=== PATIENT | female | born 1955 ===

== ENCOUNTER 2021-11-21 09:30 | Inpatient (IN) | payer OTHER ==
[~2021-11-21] VITALS: Ht 162.6 cm; Wt 90.7 kg
[~2021-11-21 09:30] MED LIST: METFORMIN HCL500 MG; SIMVASTATIN5 MG PO
[2021-11-21] MEDS ORDERED: SYNTHROID50 MCG PO (11:35)
[2021-11-21] MEDS ORDERED: AVAPRO75 MG PO (11:36)
[2021-11-21] MEDS ORDERED: GABAPENTIN800 MG (11:37)
[2021-11-21] MEDS ORDERED: CYMBALTA60 MG PO (11:37)
[2021-11-21] MEDS ORDERED: CELEBREX200MG PO (11:37)
[2021-11-21] MEDS ORDERED: SINGULAIR10 MG PO (11:38)
[2021-11-27] MEDS ORDERED: METFORMIN HCL500 M4 (11:11)
[2021-11-27] MEDS ORDERED: FAMOTIDINE20 MG (11:11)
[2021-11-27] MEDS ORDERED: ILEVRO3 ML (11:11)
[2021-11-27] MEDS ORDERED: DUREZOL5 ML (11:11)
[2021-11-27] MEDS ORDERED: PENTOXIFYLLINE400 MG (11:12)
[2021-11-27] MEDS ORDERED: TIZANIDINE HCL4 MG (11:12)
[2021-11-27] MEDS ORDERED: KETOTIFEN FUMARA5 ML (11:12)
[2021-11-27] MEDS ORDERED: AKTOB5 ML (11:12)
[2021-11-27] MEDS ORDERED: LEVOCETIRIZINE D5 MG (11:13)
[2021-11-30] MEDS ORDERED: DUI500 PO (07:46)
[2021-11-30] MEDS ORDERED: ELIQUIS2.5 MG PO (07:46)
[2021-11-30] MEDS ORDERED: PERCOCET 5-3251 EACH PO (07:46)
== END 2021-11-30 16:50 | DRG 470 ==
LOC: SURG 11-27 05:55 → O/R 11-27 05:55 → SURH 11-27 09:30 → SURG 11-27 13:22
PROVIDERS: ADMIT Orthopaedic Surgery; ATTEND Orthopaedic Surgery
PROC: 0SRD0J9 Replacement of Left Knee Joint with Synthetic Substitute, Cemented, Open Approach (ICD-10-PCS; principal; 2021-11-27 10:15)
DX: M17.12 Unilateral primary osteoarthritis, left knee (principal); D62 Acute posthemorrhagic anemia; M22.12 Recurrent subluxation of patella, left knee; E66.01 Morbid (severe) obesity due to excess calories; I10 Essential (primary) hypertension; E11.9 Type 2 diabetes mellitus without complications; Z20.822 Contact with and (suspected) exposure to COVID-19